=== PATIENT | male | born 1990 | race Two or more races ===

== ENCOUNTER 2018-01-11 05:59 | Emergency (ER) | payer OTHER ==
[2018-01-11] MEDS ORDERED: MORPHINE SULFATE 10 MG/ML INJ IM ONE (07:04)
[2018-01-11] MEDS ORDERED: LIDOCAINE 1% INJ-PF (10 MG/ML) 30 ML SDV INFIL ONE (07:04)
[2018-01-11] MEDS ORDERED: ONDANSETRON 4 MG TAB.RAPDIS PO ONE (07:04)
[2018-01-11] MEDS ORDERED: BUPIVACAINE HCL 0.5%-EPI 1:200000 INJ/PF 30 ML VIAL INJ ONE (07:05)
[2018-01-11] MEDS ORDERED: SULFAMETHOXAZOLE/TRIMETHOPRIM 800-160 MG TABLET PO ONE ×2 (07:06→09:11)
[2018-01-11] MEDS ORDERED: LIDOCAINE 4%/TETRACAINE 0.5%/EPI 0.18% 5 ML TOPICAL SOLN TOP ONE (08:02)
--- NOTE | 2018-01-11 09:18 | ER Document Report ---
ED General - General Chief Complaint: Abscess Stated Complaint: INNER THIGH PAIN Time Seen by Provider: 01/11/18 06:33 TRAVEL OUTSIDE OF THE [place] IN LAST 30 DAYS: No - HPI Patient complains to provider of: Right inner thigh abscess Notes: Patient coming in for right inner thigh abscess ongoing for the last 5 days now with drainage and erythema. Patient denies any fevers chills nausea vomiting diarrhea denies any history of MRSA or abscesses. Denies any history of trauma. States very painful - Related Data Allergies/Adverse Reactions: No Known Allergies Allergy (Verified 01/11/18 08:25) Past Medical History - Social History Smoking Status: Unknown if Ever Smoked Frequency of alcohol use: None Drug Abuse: None Family History: Reviewed & Not Pertinent Patient has suicidal ideation: No Patient has homicidal ideation: No Renal/ Medical History: Denies: Hx Peritoneal Dialysis Review of Systems - Review of Systems Constitutional: Other - Abscess with erythema EENT: No symptoms reported Cardiovascular: No symptoms reported Respiratory: No symptoms reported Gastrointestinal: No symptoms reported Genitourinary: No symptoms reported Male Genitourinary: No symptoms reported Musculoskeletal: No symptoms reported Skin: No symptoms reported Hematologic/Lymphatic: No symptoms reported Neurological/Psychological: No symptoms reported Physical Exam - Vital signs Vitals: Temp Pulse Resp BP Pulse Ox 98.4 F 98 18 167/101 H 96 01/11/18 06:16 01/11/18 06:16 01/11/18 06:16 01/11/18 06:16 01/11/18 06:16 Interpretation: Normal - General General appearance: Appears well, Alert - HEENT Head: Normocephalic, Atraumatic Eyes: Normal Pupils: PERRL - Respiratory Respiratory status: No respiratory distress Chest status: Nontender Breath sounds: Normal Chest palpation: Normal - Cardiovascular Rhythm: Regular Heart sounds: Normal auscultation Murmur: No - Abdominal Inspection: Normal Distension: No distension Bowel sounds: Normal Tenderness: Nontender Organomegaly: No organomegaly - Back Back: Normal, Nontender - Extremities General upper extremity: Normal inspection, Nontender, Normal color, Normal ROM , Normal temperature General lower extremity: Nontender, Normal color, Normal ROM, Normal temperature , Normal weight bearing. No: Normal inspection - Patient coming in with an abscess on the right leg patient has a 2 cm x 2 cm area of fluctuance followed by an area approximately 8 cm x 6 mm of the inner thigh there is no extension of erythema to the groin or perineal region. Patient also has a small bump on left levels bedside ultrasound no signs of fluid collection. Patient also does have a small amount of fluid collection and what looks to be a phlegmon within the abscess on the right., Susy's sign - Neurological Neuro grossly intact: Yes Cognition: Normal Orientation: AAOx4 Mercer Coma Scale Eye Opening: Spontaneous Mercer Coma Scale Verbal: Oriented Bharati Coma Scale Motor: Obeys Commands Bharati Coma Scale Total: 15 Speech: Normal Motor strength normal: LUE, RUE, LLE, RLE Sensory: Normal - Psychological Associated symptoms: Normal affect, Normal mood - Skin Skin Temperature: Warm Skin Moisture: Dry Skin Color: Normal Course - Re-evaluation Re-evalutation: 01/11/18 14:53 I&D performed. Patient tolerated procedure patient was started on Bactrim will be discharged home. - Vital Signs Vital signs: Temp Pulse Resp BP Pulse Ox 97.4 F 78 18 145/86 H 96 01/11/18 09:51 01/11/18 09:51 01/11/18 09:51 01/11/18 09:51 01/11/18 09:51 Procedures - Incision and Drainage Right Thigh Type: Simple Anesthetic type: 0.5% Bupivacaine mL's of anesthetic: 5 - Comminution lidocaine and Marcaine used Blade size: 11 I&D procedure: Betadine prep applied, Chlorprep applied Incision Method: Incision made by scalpel Amount/type of drainage: Mild amount of pus and blood. Discharge - Discharge Clinical Impression: Cellulitis and abscess of leg Condition: Good Disposition: HOME, SELF-CARE Instructions: Abscess ([facility]), Oral Narcotic Medication ([facility]), Post Incision and Drainage, Trimethoprim-Sulfa ([facility]) Additional Instructions: Please take Tylenol and Motrin for pain control he may also take the prescribed narcotic pain medication. Please change her dressing at least once a day. Continue to monitor the area redness if this spreads beyond all marking by about 1 inch I would recommend coming to the ER for further evaluation. Return to the ER to be if you develop a fever. Take antibiotics as prescribed. He may also place warm compresses on the area to help out with the pain. He can expect to have some slight drainage/blood when he changes them. Prescriptions: Sulfamethoxazole/Trimethoprim [Bactrim Ds Tablet] 2 each PO BID 10 Days #20 tablet Sulfamethoxazole/Trimethoprim [Bactrim Ds Tablet] 2 each PO BID 10 Days #40 tablet Tramadol HCl [Ultram 50 mg Tablet] 50 mg PO ASDIR PRN #30 tablet PRN Reason: Forms: Return to Work
[2018-01-11 10:25] VITALS: BP 145/86
== END 2018-01-11 10:18 | disposition home or self-care (01) ==
LOC: ER 05:59
PROC: 0H9HXZZ Drainage of Right Upper Leg Skin, External Approach (ICD-10-PCS; principal; 2018-01-11)
DX: L02.415 Cutaneous abscess of right lower limb (principal); L03.115 Cellulitis of right lower limb
CPT/HCPCS: 99283; 96372; 10060; S0119; J2270; J3490

== ENCOUNTER 2018-01-13 02:10 | Emergency (ER) | payer OTHER ==
--- NOTE | 2018-01-13 03:49 | ER Document Report ---
HPI - HPI Context: Patient is a 27 year old male who was seen here on 01/11/2018 for a right medial thigh abscess x5 days that was I&D and initiated on Bactrim and Tramadol. He was told to return to the ED if the erythema spread outside of the line marking the existing erythema on 01/11. He states this evening he went to the bathroom and had noticed the redness approximately 1.5 inches past the line. He states he has been taking his antibiotic as directed and has not missed any doses. Admits to drainage. He denies any fevers, chills, nausea, vomiting. Otherwise healthy male. Denies h/o DM, H/o HTN. Denies tobacco use. Past Medical History - Social History Smoking Status: Never Smoker Family History: Reviewed & Not Pertinent Renal/ Medical History: Denies: Hx Peritoneal Dialysis Vertical Provider Document - CONSTITUTIONAL Agree With Documented VS: Yes Notes: PHYSICAL EXAM GENERAL: Alert, interacts well. HEAD: Normocephalic, atraumatic. LUNGS: Clear to auscultation bilaterally, no wheezes, rales, or rhonchi. No respiratory distress. HEART: Regular rate and rhythm. No murmurs, gallops, or rubs. EXTREMITIES: Moves all 4 extremities spontaneously. No edema, radial and dorsalis pedis pulses 2/4 bilaterally. No cyanosis. NEUROLOGICAL: Alert and oriented x4. Normal speech. PSYCH: Normal affect, normal mood. SKIN: right medial thigh with evidence of erythema measuring 20cm in diameter with a central indurated area of 6-8cm with central incision. No active purulent drainage or bleeding. - INFECTION CONTROL TRAVEL OUTSIDE OF THE [place] IN LAST 30 DAYS: No Course - Re-evaluation Re-evalutation: 01/13/18 03:46 Patient is a 27-year-old male who is hemodynamically stable, no acute distress afebrile. Presentation is consistent with worsening cellulitis of the right medial thigh. Patient only on Bactrim without any coverage for strep. CBC stable without any evidence of leukocytosis or anemia. Wound culture sent and patient given dose of ceftriaxone. Will discharge home on p.o. Keflex with instructions to return to the ED with any spreading cellulitis outside of the new borders are replaced this evening. Patient agrees with plan and is stable for discharge home. Discharge - Discharge Clinical Impression: Cellulitis and abscess of leg Condition: Good Disposition: HOME, SELF-CARE Instructions: Abscess ([facility]), MRSA Cellulitis ([facility]), Post Incision and Drainage , Cephalexin ([facility]), Trimethoprim-Sulfa ([facility]) Additional Instructions: Please continue taking her Bactrim as directed. He has also been started on a new medication called Keflex which will cover for different bacteria. Please return to the emergency department if your redness continues to spread out of the new borders that were placed this evening/the larger [place]. Please also return to the emergency department with any fevers of 102 or higher, any difficulty tolerating oral fluids, any other additional symptoms worrisome to you. Prescriptions: Cephalexin Monohydrate [Keflex 500 mg Capsule] 500 mg PO Q6H 10 Days capsule Referrals: [facility] [Provider Group] - Follow up in 3-5 days
[2018-01-13] MEDS ORDERED: CEFAZOLIN 1 GM/D5W RTU 1 GM/50 ML RTUPB IV ONE (04:00)
[2018-01-13] MEDS ORDERED: TRAMADOL HCL 50 MG TABLET PO ONE (04:00)
[2018-01-13 04:50] LABS: ABSOLUTE BASOPHILS # (AUTO) 0.1 10^3/uL (0.0-0.2); ABSOLUTE EOSINOPHILS # (AUTO) 0.2 10^3/uL (0.0-0.6); ABSOLUTE LYMPHOCYTES (AUTO) 2.6 10^3/uL (0.5-4.7); ABSOLUTE NEUT (AUTO) 5.4 10^3/uL (1.7-8.2); BASOPHILS % (AUTO) 1.2 % (0-2); EOSINOPHILS % (AUTO) 2.4 % (0-6); HEMATOCRIT 44.6 % (37.9-51.0); HEMOGLOBIN 15.3 g/dL (13.5-17.0); LYMPHOCYTES % (AUTO) 27.7 % (13-45); MEAN CORPUSCULAR HEMOGLOBIN 30.2 pg (27.0-33.4); MEAN CORPUSCULAR HGB CONC 34.4 g/dL (32.0-36.0); MEAN CORPUSCULAR VOLUME 88 fl (80-97); MONOCYTES % (AUTO) 10.8 % (3-13); PLATELET COUNT 208 10^3/uL (150-450); RED BLOOD COUNT 5.09 10^6/uL (4.35-5.55); RED CELL DISTRIBUTION WIDTH 12.5 % (11.5-14.0); SEGMENTED NEUTROPHILS % (AUTO) 57.9 % (42-78); TOTAL CELLS COUNTED % (AUTO) 100 %; WHITE BLOOD COUNT 9.4 10^3/uL (4.0-10.5)
[2018-01-13 05:28] LABS: ANION GAP 10 (5-19); BLOOD UREA NITROGEN 16 mg/dL (7-20); CALCIUM 9.4 mg/dL (8.4-10.2); CARBON DIOXIDE 30 mmol/L (22-30); CHLORIDE 102 mmol/L (98-107); GLUCOSE 100 mg/dL (75-110); POTASSIUM 4.4 mmol/L (3.6-5.0); SODIUM 141.9 mmol/L (137-145)
== END 2018-01-13 04:14 | disposition home or self-care (01) ==
LOC: ER 02:10
DX: L02.415 Cutaneous abscess of right lower limb (principal)
CPT/HCPCS: 36415; 80048; 85025; 87040; 87070; 87075; 87077; 87186; 87205; 96374; 99283

== ENCOUNTER 2018-01-14 23:34 | Emergency (ER) | payer OTHER ==
[2018-01-15] MEDS ORDERED: CEFTRIAXONE INJ 1000 MG VIAL IM ONE (01:44)
[2018-01-15] MEDS ORDERED: LIDOCAINE 1% INJ-PF (10 MG/ML) 30 ML SDV INJ ONE (01:45)
[2018-01-15] MEDS ORDERED: LIDOCAINE 1% INJ (10 MG/ML) 10 ML MDV INJ ONE (01:45)
[2018-01-15] MEDS ORDERED: MORPHINE SULFATE 10 MG/ML INJ IM ONE (02:01)
[2018-01-15] MEDS ORDERED: ONDANSETRON 4 MG TAB.RAPDIS PO ONE (02:02)
[2018-01-15] MEDS ORDERED: LIDOCAINE 4%/TETRACAINE 0.5%/EPI 0.18% 5 ML TOPICAL SOLN TOP ONE (02:35)
--- NOTE | 2018-01-15 03:01 | ER Document Report ---
ED General - General Chief Complaint: Rash Stated Complaint: POSSIBLE LEG INFECTION Time Seen by Provider: 01/15/18 01:32 Mode of Arrival: Ambulatory Information source: Patient TRAVEL OUTSIDE OF THE [place] IN LAST 30 DAYS: No - HPI Notes: Patient is a 27-year-old male presents emergency department with report of a right lower extremity abscess/skin infection that started about 5 days ago. The patient was seen on 01/11/18 and had incision and drainage performed and was started on Bactrim. There was no packing placed in the wound however. The patient reports the induration has slightly improved but he reports a slightly expanding cellulitis distally down the leg. He was seen 2 days ago and started on Keflex but just is only had 2 tablets. The patient on his original evaluation had blood culture and blood work which showed no evidence for diabetes or significant elevation of the white blood cell count, and wound culture thus far is growing gram positive clusters of cocci, without further differentiation or sensitivity. Patient denies any fevers or chest pain or shortness of breath. He reports no numbness or paresthesia. There is no history of MRSA or other skin abscesses that he is aware of. - Related Data Allergies/Adverse Reactions: No Known Allergies Allergy (Verified 01/11/18 08:25) Past Medical History - General Information source: Patient - Social History Smoking Status: Never Smoker Chew tobacco use (# tins/day): No Frequency of alcohol use: Rare Drug Abuse: None Lives with: Family Family History: Reviewed & Not Pertinent Patient has suicidal ideation: No Patient has homicidal ideation: No Renal/ Medical History: Denies: Hx Peritoneal Dialysis Review of Systems - Review of Systems Notes: REVIEW OF SYSTEMS: CONSTITUTIONAL : Denies fever, chills, or sweats. EENT: Denies eye, ear, throat, or mouth pain or symptoms. CARDIOVASCULAR: Denies chest pain. Denies ankle edema. RESPIRATORY: Denies shortness of breath, difficulty breathing, or wheezing. GASTROINTESTINAL: Denies abdominal pain. Denies nausea, vomiting, or diarrhea. GENITOURINARY: Denies difficulty urinating MUSCULOSKELETAL: Denies back or neck pain or stiffness. Denies joint pain or swelling. SKIN: Abscess right thigh. HEMATOLOGIC : Denies easy bruising or bleeding. LYMPHATIC: Denies swollen, enlarged glands. NEUROLOGICAL: Denies weakness or paralysis or loss of use of either side. Denies sensory loss, numbness, or tingling. ALL OTHER SYSTEMS REVIEWED AND NEGATIVE. Dictation was performed using [employer] voice recognition software Physical Exam - Vital signs Vitals: Temp Pulse Resp BP Pulse Ox 98.3 F 77 16 151/88 H 97 01/14/18 23:34 01/14/18 23:34 01/14/18 23:34 01/14/18 23:34 01/14/18 23:34 - Notes Notes: HEENT atraumatic normocephalic. Conjunctiva clear. Abdomen soft nontender. Genitourinary exam circumcised. No testicular extension no significant inguinal adenopathy. No evidence for Dominga's. Left leg is clear. Right leg shows medial upper thigh induration 4 cm diameter with a proximal incision that measures 1 cm that appears to be partially closed. There is no packing in place. There is cellulitis that extends 2 cm above the area of induration but extends 8 cm below the area of induration. Distally, the patient is neurovascularly intact with good distal sensation and capillary refill. No distal edema. Good distal pulses. Course - Re-evaluation Re-evalutation: 01/15/18 03:05 Patient was given a shot of Rocephin shot of morphine and p.o. Zofran. Following discussion of risks, alternatives, and benefits, the patient agreed to incision and drainage of the wound with packing placement. A wound culture had already been obtained, so this was not repeated. The wound area was Betadine prepped, and the patient requested a topical anesthetic and LET was applied to the wound. Afterwards, the wound was locally infiltrated with lidocaine 1% 1.5 cc, then the wound was incised with a #11 scalpel and extended from 1 cm to 1.8 cm and then purulent material was obtained the wound was irrigated with saline, then the wound was, then gently explored, then the wound was loosely packed with quarter inch iodoform gauze. Patient tolerated the procedure with some degree of pain. Blood loss less than 10 cc. Patient was advised to day follow-up for packing removal and replacement and further evaluation. He will continue Bactrim and Keflex, and wound culture from 2 days ago is still pending for confirmation and sensitivity. 01/15/18 03:43 - Vital Signs Vital signs: Temp Pulse Resp BP Pulse Ox 98.3 F 77 16 151/88 H 97 01/14/18 23:34 01/14/18 23:34 01/14/18 23:34 01/14/18 23:34 01/14/18 23:34 Discharge - Discharge Clinical Impression: Abscess Cellulitis Qualifiers: Site of cellulitis: extremity Site of cellulitis of extremity: lower extremity Laterality: right Qualified Code(s): L03.115 - Cellulitis of right lower limb Condition: Stable Disposition: HOME, SELF-CARE Instructions: Abscess ([facility]), Oral Narcotic Medication ([facility]), Cephalexin ([facility]), Trimethoprim-Sulfa ([facility]) Additional Instructions: The wound packing needs to be removed in 2 days and then replaced. Return to the emergency department in case of fever or worsening redness. Continue Keflex and Bactrim antibiotic. You may take ibuprofen at the same time as Clymer and tramadol as needed for pain. Prescriptions: Hydrocodone/Acetaminophen [Clymer 5-325 mg Tablet] 1 tab PO Q4HP PRN #20 tablet PRN Reason:
[2018-01-15] MEDS ORDERED: HYDROCODONE/ACETAMINOPHEN 5-325 MG (6 TAB/ER DISP) PO PRN (03:20)
[2018-01-15 04:09] VITALS: BP 144/82
== END 2018-01-15 04:09 | disposition home or self-care (01) ==
LOC: ER 23:34
DX: L02.415 Cutaneous abscess of right lower limb (principal); L03.115 Cellulitis of right lower limb; Z98.890 Other specified postprocedural states
CPT/HCPCS: 99282; 96372; 10060; A6266; S0119; J3490 ×2; J2270; J0696

== ENCOUNTER 2018-10-15 01:47 | Emergency (ER) | payer OTHER ==
[2018-10-15 02:00] VITALS: BP 174/104
[2018-10-15] MEDS ORDERED: ACETAMINOPHEN 325 MG TABLET PO ONE (02:36)
[2018-10-15] MEDS ORDERED: MORPHINE SULFATE IR 15 MG TABLET PO ONE (02:36)
--- NOTE | 2018-10-15 02:45 | ER Document Report ---
ED General - General Chief Complaint: Back Pain Stated Complaint: CHEST AND SHOULDER PAIN Time Seen by Provider: 10/15/18 02:18 Notes: Patient is a 28-year-old male that comes to the emergency department for chief complaint of pain across his left chest, shoulder, and he is back along the scapula. Pain is with range of motion of the left shoulder and with deep breaths. He states he has had this pain since 2016, [facility] several weeks ago where his shoulder was evaluated. 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 He states he is on Robaxin, anti-inflammatories. He states that over the past several days that the pain has been more noticeable and he has become more uncomfortable therefore he came in for evaluation. He denies IV drug abuse, fever, reinjury. He denies any other medical history. TRAVEL OUTSIDE OF THE [place] IN LAST 30 DAYS: No - Related Data Allergies/Adverse Reactions: No Known Allergies Allergy (Verified 01/11/18 08:25) Past Medical History - General Information source: Patient - Social History Smoking Status: Never Smoker Frequency of alcohol use: Occasional Drug Abuse: None Lives with: Family Family History: Reviewed & Not Pertinent Patient has suicidal ideation: No Patient has homicidal ideation: No - Medical History Medical History: Negative Renal/ Medical History: Denies: Hx Peritoneal Dialysis Review of Systems - Review of Systems Constitutional: No symptoms reported EENT: No symptoms reported Cardiovascular: No symptoms reported Respiratory: No symptoms reported Gastrointestinal: No symptoms reported Genitourinary: No symptoms reported Male Genitourinary: No symptoms reported Musculoskeletal: See HPI Skin: No symptoms reported Hematologic/Lymphatic: No symptoms reported Neurological/Psychological: No symptoms reported Physical Exam - Vital signs Vitals: Temp Pulse Resp BP Pulse Ox 98.1 F 82 15 174/104 H 97 10/15/18 01:59 10/15/18 01:59 10/15/18 01:59 10/15/18 01:59 10/15/18 01:59 - Notes Notes: GENERAL: Alert, interacts well. No acute distress. HEAD: Normocephalic, atraumatic. EYES: Pupils equal, round, and reactive to light. Extraocular movements intact. ENT: Oral mucosa moist, tongue midline. Oropharynx unremarkable. Airway patent. Nares patent, no nasal septal hematoma, TM's intact. NECK: Full range of motion. Supple. Trachea midline. LUNGS: Clear to auscultation bilaterally, no wheezes, rales, or rhonchi. No respiratory distress. Mild tenderness over the left pectoralis muscle extending up to the left shoulder. HEART: Regular rate and rhythm. No murmur ABDOMEN: Soft, non-tender. Non-distended. Bowel sounds present in all 4 quadrants. GENITOURINARY: Deferred EXTREMITIES: Tender over the left upper pectoral muscles, muscles adjacent to the left scapula, and over the supraspinatus muscles as well. Pain with range of motion of the left shoulder although range of motion is intact. Areas over the same with much muscle fibers suggesting spasm. Normal distal neurovascular exam. Normal upper extremity exam is otherwise. BACK: no cervical, thoracic, lumbar midline tenderness. No saddle anesthesia, normal distal neurovascular exam. NEUROLOGICAL: Alert and oriented x3. Normal speech. [cranial nerves II through XII grossly intact]. PSYCH: Normal affect, normal mood. SKIN: Warm, dry, normal turgor. No rashes or lesions noted. Course - Re-evaluation Re-evalutation: EKG shows sinus rhythm with no T wave inversions or ST segment changes in consecutive leads. QTc unremarkable. Chest x-ray unremarkable. Patient with ongoing symptoms which are intermittently worse. He states over the past few days he has had a lot of trouble moving his arm. He does have a lot of tenderness with movement, tightness, and muscle spasms on exam. Vital signs are unremarkable except for hypertension, unfortunately this was not documented as rechecked, patient is to follow-up with primary care to have this rechecked. Patient already has good orthopedic follow-up. Requesting something for the next few days, is planning to get a shoulder injection on the left side to give him more time until possible surgery. I did provide him with diazepam as an improvement over his Robaxin for attempted additional help with his muscle spasms. I discussed return precautions in detail with patient, I discussed risks of diazepam with patient. Patient states gratefulness and understanding, states agreement with plan. - Vital Signs Vital signs: Temp Pulse Resp BP Pulse Ox 98.1 F 82 15 174/104 H 97 10/15/18 01:59 10/15/18 01:59 10/15/18 01:59 10/15/18 01:59 10/15/18 01:59 Discharge - Discharge Clinical Impression: Chest wall pain Left shoulder pain Qualifiers: Chronicity: acute Qualified Code(s): M25.512 - Pain in left shoulder Condition: Stable Disposition: HOME, SELF-CARE Additional Instructions: Your workup does not show any acute concerning findings. Follow-up with your orthopedic surgeon for additional management including possible injections, physical therapy, or surgery. Continue on anti-inflammatory such as ibuprofen, you have been provided with medication to use temporarily has muscle relaxer, apply heat to the area, perform gentle stretches, avoid lifting with the shoulder. Follow-up with primary care. Return for any concerning symptoms including swelling, numbness, fever, developing redness, or any other concerning symptoms. Prescriptions: Diazepam [Valium 5 mg Tablet] 1 - 2 tab PO TID PRN #12 tablet PRN Reason: [facility]errals[facility] [[facility] - Follow up as needed
--- NOTE | 2018-10-15 03:17 | RADIOLOGY REPORT (SQ) ---
EXAM DESCRIPTION: XR CHEST 2 VIEWS COMPLETED DATE/TME: 10/15/2018 02:36 CLINICAL HISTORY: 28 years Male, chest pain, pain with inspiration COMPARISON: None. NUMBER OF VIEWS/TECHNIQUE: 2, Frontal, Lateral FINDINGS: Adequate lung volume, clear parenchyma, normal cardiac silhouette, and intact bony thorax. IMPRESSION: No acute cardiopulmonary findings.
--- NOTE | 2018-10-15 14:22 | EKG REPORT ---
SEVERITY:- NORMAL ECG - SINUS RHYTHM : Confirmed by: Esther Vang MD 15-Oct-2018 14:21:15
== END 2018-10-15 03:37 | disposition home or self-care (01) ==
LOC: ER 01:47
DX: R07.89 Other chest pain (principal); M25.512 Pain in left shoulder; M62.838 Other muscle spasm; I10 Essential (primary) hypertension; Z79.899 Other long term (current) drug therapy
CPT/HCPCS: 71046; 93005; 93010; 99283

== ENCOUNTER 2019-04-27 23:40 | Emergency (ER) | payer OTHER ==
[2019-04-28 01:28] LABS: ABSOLUTE BASOPHILS # (AUTO) 0.1 10^3/uL (0.0-0.2); ABSOLUTE EOSINOPHILS # (AUTO) 0.3 10^3/uL (0.0-0.6); ABSOLUTE LYMPHOCYTES (AUTO) 2.3 10^3/uL (0.5-4.7); ABSOLUTE MONOCYTES (AUTO) 0.8 10^3/uL (0.1-1.4); ABSOLUTE NEUT (AUTO) 4.4 10^3/uL (1.7-8.2); BASOPHILS % (AUTO) 1.1 % (0-2); EOSINOPHILS % (AUTO) 3.7 % (0-6); HEMATOCRIT 41.1 % (37.9-51.0); HEMOGLOBIN 14.3 g/dL (13.5-17.0); LYMPHOCYTES % (AUTO) 29.5 % (13-45); MEAN CORPUSCULAR HEMOGLOBIN 30.2 pg (27.0-33.4); MEAN CORPUSCULAR HGB CONC 34.7 g/dL (32.0-36.0); MEAN CORPUSCULAR VOLUME 87 fl (80-97); MONOCYTES % (AUTO) 10.1 % (3-13); PLATELET COUNT 254 10^3/uL (150-450); RED BLOOD COUNT 4.72 10^6/uL (4.35-5.55); RED CELL DISTRIBUTION WIDTH 12.1 % (11.5-14.0); SEGMENTED NEUTROPHILS % (AUTO) 55.6 % (42-78); TOTAL CELLS COUNTED % (AUTO) 100 %; WHITE BLOOD COUNT 7.9 10^3/uL (4.0-10.5)
[2019-04-28 01:44] LABS: ALANINE AMINOTRANSFERASE 60 U/L (21-72); ALBUMIN 4.1 g/dL (3.5-5.0); ALKALINE PHOSPHATASE 102 U/L (38-126); ANION GAP 10 (5-19); ASPARTATE AMINO TRANSFERASE 55 U/L (17-59); BILIRUBIN,DIRECT 0.2 mg/dL (0.0-0.4); BILIRUBIN,TOTAL 0.2 mg/dL (0.2-1.3); BLOOD UREA NITROGEN 13 mg/dL (7-20); CARBON DIOXIDE 24 mmol/L (22-30); CHLORIDE 108 mmol/L (98-107); CREATINE KINASE 834 U/L (55-170); GLUCOSE 102 mg/dL (75-110); POTASSIUM 4.1 mmol/L (3.6-5.0); TOTAL PROTEIN 7.5 g/dL (6.3-8.2)
--- NOTE | 2019-04-28 01:52 | RADIOLOGY REPORT (SQ) ---
EXAM DESCRIPTION: XR CHEST 1 VIEW COMPLETED DATE/TME: 04/28/2019 01:13 CLINICAL HISTORY: 28 years Male sob COMPARISON: 10/23/2018. FINDINGS: Heart is within normal limits for AP technique. No central pontine vascular congestion or evidence of edema. No acute consolidation. No pleural fluid. IMPRESSION: No acute abnormality is identified.
[2019-04-28 01:58] LABS: CREATINE KINASE MB 0.44 ng/mL (<4.55)
[2019-04-28 01:59] LABS: TROPONIN I < 0.012 ng/mL
[2019-04-28] MEDS ORDERED: NORMAL SALINE 1000 ML 1,000 ML IV ONE ×2 (02:01→02:02)
[2019-04-28] MEDS ORDERED: KETOROLAC TROMETHAMINE INJ/PF 30 MG/1 ML SDV IV ONE (02:01)
--- NOTE | 2019-04-28 04:15 | ER Document Report ---
ED General - General Chief Complaint: Chest Pain Stated Complaint: BACK AND CHEST PAIN Time Seen by Provider: 04/28/19 01:13 Primary Care Provider: LITTLE,MONALISA [Primary Care Provider] - Follow up as needed Mode of Arrival: Ambulatory Information source: Patient Notes: Patient is a 28-year-old male who presents to the emergency department with chief complaint of chest pain and back pain. Patient reports chronic back pain that he is currently undergoing treatment by a chiropractor as well as pain management. He reports chest pain after doing a strenuous workout about 2 days ago. He reports the pain has been ongoing since then. He reports pain is worse with a deep breath. He denies any nausea, vomiting, diarrhea or fever. He denies any cardiac history. TRAVEL OUTSIDE OF THE [place] IN LAST 30 DAYS: No - Related Data Allergies/Adverse Reactions: No Known Allergies Allergy (Verified 01/11/18 08:25) Past Medical History - General Information source: Patient - Social History Smoking Status: Never Smoker Frequency of alcohol use: None Drug Abuse: None Family History: Reviewed & Not Pertinent Patient has suicidal ideation: No Patient has homicidal ideation: No - Past Medical History Cardiac Medical History: Reports: Hx Hypertension Renal/ Medical History: Denies: Hx Peritoneal Dialysis Review of Systems - Review of Systems Constitutional: No symptoms reported EENT: No symptoms reported Cardiovascular: See HPI Respiratory: See HPI Gastrointestinal: No symptoms reported Genitourinary: No symptoms reported Male Genitourinary: No symptoms reported Musculoskeletal: See HPI Skin: No symptoms reported Hematologic/Lymphatic: No symptoms reported Neurological/Psychological: No symptoms reported Physical Exam - Vital signs Vitals: Temp Pulse Resp BP Pulse Ox 98.1 F 85 22 H 180/104 H 97 04/28/19 00:19 04/28/19 00:19 04/28/19 00:19 04/28/19 00:04/28/19 00:19 - Notes Notes: PHYSICAL EXAMINATION: GENERAL: Well-appearing, well-nourished and in no acute distress. HEAD: Atraumatic, normocephalic. EYES: Pupils equal round and reactive to light, extraocular movements intact, sclera anicteric, conjunctiva are normal. ENT: Nares patent, oropharynx clear without exudates. Moist mucous membranes. NECK: Normal range of motion, supple without lymphadenopathy LUNGS: Breath sounds clear to auscultation bilaterally and equal. No wheezes rales or rhonchi. HEART: Regular rate and rhythm without murmurs ABDOMEN: Soft, nontender, nondistended abdomen. No guarding, no rebound. No masses appreciated. Musculoskeletal: Normal range of motion, no pitting or edema. No cyanosis. Reproducible chest pain with palpation to the left chest wall. Generalized back pain specifically to the right and left lumbar paraspinous areas, no vertebral tenderness, step-off or deformity. NEUROLOGICAL: Cranial nerves grossly intact. Normal speech, normal gait. Normal sensory, motor exams PSYCH: Normal mood, normal affect. SKIN: Warm, Dry, normal turgor, no rashes or lesions noted. Course - Re-evaluation Re-evalutation: Laboratory 04/28/19 04/28/19 04/28/19 00:39 00:39 00:39 WBC 7.9 RBC 4.72 Hgb 14.3 Hct 41.1 MCV 87 MCH 30.2 MCHC 34.7 RDW 12.1 Plt Count 254 Seg Neutrophils % 55.6 Lymphocytes % 29.5 Monocytes % 10.1 Eosinophils % 3.7 Basophils % 1.1 Absolute Neutrophils 4.4 Absolute Lymphocytes 2.3 Absolute Monocytes 0.8 Absolute Eosinophils 0.3 Absolute Basophils 0.1 Sodium 142.0 Potassium 4.1 Chloride 108 H Carbon Dioxide 24 Anion Gap 10 BUN 13 Creatinine 0.80 Est GFR ( Amer) > 60 Est GFR (Non-Af Amer) > 60 Glucose 102 Calcium 9.0 Total Bilirubin 0.2 Direct Bilirubin 0.2 Neonat Total Bilirubin Not Reportable Neonat Direct Bilirubin Not Reportable Neonat Indirect Bili Not Reportable AST 55 ALT 60 Alkaline Phosphatase 102 Creatine Kinase 834 H CK-MB (CK-2) 0.44 Troponin I < 0.012 Total Protein 7.5 Albumin 4.1 Chest X-Ray 04/28/19 01:13 IMPRESSION: No acute abnormality is identified. Labs as recorded, CK is elevated. Troponin was within normal limits. Patient was given 2 L of IV fluids here in the emergency department and he reports that he feels much better. Chest pain is reproducible on palpation. It is worsened with movement. Unlikely cardiac in nature. Patient's heart score is 1. Patient will be discharged home at this time with instructions to follow-up with primary care. ED return precautions were discussed and patient verbalized understanding and agreement with same. - Vital Signs Vital signs: Temp Pulse Resp BP Pulse Ox 98 F 68 12 158/96 H 98 04/28/19 04:50 04/28/19 00:28 04/28/19 04:03 04/28/19 04:49 04/28/19 04:03 - Laboratory Result Diagrams: 04/28/19 00:39 04/28/19 00:39 Laboratory results interpreted by me: 04/28/19 00:39 Chloride 108 H Creatine Kinase 834 H Discharge - Discharge Clinical Impression: Elevated CK Condition: Stable Disposition: HOME, SELF-CARE Additional Instructions: Was seen and evaluated in the emergency department today for back pain, chest pain or shortness of breath. Your work-up was negative other than elevated CK levels this is probably likely due to dehydration and the strenuous workout that you did. You were given IV fluids here in the emergency department. Please continue to drink plenty of fluids. [facility] all [facility] as well as your pain management. Return to the emergency department for any new or worsening symptoms. Referrals: [facility] [Primary [facility]] - Follow up as needed
[2019-04-28 04:50] VITALS: BP 158/96
== END 2019-04-28 04:50 | disposition home or self-care (01) ==
LOC: ER 23:40
DX: R74.8 Abnormal levels of other serum enzymes (principal); R07.9 Chest pain, unspecified; M54.9 Dorsalgia, unspecified; G89.29 Other chronic pain
CPT/HCPCS: 99283; 96361; 96374; 36415; 82553; 82550; 85025; 80053; 84484; 71045; J1885; J7030

== ENCOUNTER 2019-05-04 21:16 | Emergency (ER) | payer OTHER ==
[2019-05-04] MEDS ORDERED: DIAZEPAM 5 MG TABLET PO ONE (23:19)
[2019-05-04] MEDS ORDERED: KETOROLAC TROMETHAMINE INJ/PF 30 MG/1 ML SDV IM ONE (23:19)
--- NOTE | 2019-05-04 23:24 | ER Document Report ---
HPI - HPI Time Seen by Provider: 05/04/19 23:03 Pain Level: 5 Context: Patient is a 28-year-old male presents to the emergency department with a chief complaint of right shoulder pain. Patient states he does have a history of chronic right shoulder pain as well as left shoulder pain and chronic back pain. He states that he did not have any specific injury but that his body was worn out from the . Patient states that yesterday he noticed he started to develop right shoulder pain. Patient denies injury or fall. Patient states it feels very sore and tight. Patient states the pain is located primarily to the anterior aspect of the right shoulder. Patient states he had an MRI performed by orthopedics to the right shoulder few months ago which did not show any abnormality. Patient states he took 800 mg ibuprofen and Robaxin 4 hours ago which did not help with his pain. Patient denies numbness or tingling to the right upper extremity. Past Medical History - General Information source: Patient - Social History Smoking Status: Never Smoker Cigarette use (# per day): No Smoking Education Provided: Yes Frequency of alcohol use: None Drug Abuse: None Lives with: Family Family History: Reviewed & Not Pertinent - Past Medical History Cardiac Medical History: Reports: Hx Hypertension Pulmonary Medical History: Reports: None EENT Medical History: Reports: None Neurological Medical History: Reports: None Endocrine Medical History: Reports: None Renal/ Medical History: Reports: None. Denies: Hx Peritoneal Dialysis Malignancy Medical History: Reports None GI Medical History: Reports: None Musculoskeletal Medical History: Reports None Skin Medical History: Reports None Psychiatric Medical History: Reports: None Traumatic Medical History: Reports: None Infectious Medical History: Reports: None Surgical Hx: Negative Vertical Provider Document - CONSTITUTIONAL Agree With Documented VS: Yes Exam Limitations: No Limitations General Appearance: Mild Distress - INFECTION CONTROL TRAVEL OUTSIDE OF THE [place] IN LAST 30 DAYS: No - HEENT HEENT: Atraumatic, Normal ENT Exam, Normocephalic - NECK Neck: Normal Inspection - RESPIRATORY Respiratory: Breath Sounds Normal, No Respiratory Distress - CARDIOVASCULAR Cardiovascular: Regular Rate, Regular Rhythm - GI/ABDOMEN Gastrointestinal: Abdomen Soft, Abdomen Non-Tender - BACK Back: Normal Inspection - MUSCULOSKELETAL/EXTREMETIES Notes: Patient has tenderness to the anterior aspect of the right shoulder. There is no eccymosis, edema, or obvious deformity, patient has limited AROM, internal rotation and external rotation due to pain. + strong arm rest builder to right hand, + strong right radial and brachial pulse. - NEURO Level of Consciousness: Awake, Alert, Appropriate - DERM Integumentary: Warm, Dry, No Rash Course - Re-evaluation Re-evalutation: 05/04/19 23:26 Will obtain imaging of the right shoulder, although I do not suspect any bony abnormality. I will medicate the patient while in the emergency department and re-evaluate. Patient states he does have a ride home. Patient has close follow up with action therapy at [facility] already. 05/05/19 01:22 After receiving the Valium patient states that he feels a little bit better with his discomfort to the right shoulder. Patient still has limited range of motion at the shoulder joint but it has significantly improved. Patient did not want to perform active range of motion but I was able to perform passive range of motion with improvement with flexion, extension, internal rotation and external rotation. Patient still does not have full ROM. X-ray of the right shoulder showed Rotator cuff calcific tendinosis. Patient's symptoms are consistent with possible inflammation to the rotator cuff. We will treat the patient with oral steroids as a taper dosing. I did inform the patient that ultimately he does need to follow-up with his orthopedic as he may need a steroid injection and potentially surgery in the future. I did inform the patient to continue taking his ibuprofen and Robaxin at home. To use cool compresses to the site. Patient educated on strict return precautions. - Vital Signs Vital signs: Temp Pulse Resp BP Pulse Ox 98.7 F 104 H 16 169/110 H 96 05/04/19 21:29 05/04/19 21:29 05/04/19 21:29 05/04/19 21:29 05/04/19 21:29 - Diagnostic Test Radiology reviewed: Reports reviewed Radiology results interpreted by me: 05/05/19 01:23 Shoulder X-Ray 05/04/19 23:15 IMPRESSION: No acute fracture or malalignment. Rotator cuff calcific tendinosis. Discharge - Discharge Clinical Impression: Tendinopathy of rotator cuff Qualifiers: Laterality: right Qualified Code(s): M67.911 - Unspecified disorder of synovium and tendon, right shoulder Rotator cuff tendonitis Qualifiers: Laterality: right Qualified Code(s): M75.81 - Other shoulder lesions, right shoulder Condition: Stable Disposition: HOME, SELF-CARE Additional Instructions: Today you were seen in the emergency department for right shoulder pain. Your x-ray did show a right rotator cuff calcific tendinosis, this could potentially be inflamed which is causing your symptoms. I will place you on oral steroid called prednisone. This is a taper dosing and should be taken as directed. Please return to the emergency department if you have worsening symptoms, unable to move the right shoulder joint, fever, numbness or tingling to the lower extremity loss of function or any concerning signs or symptoms. Continue to take your Robaxin and ibuprofen. You may use cool compresses to the site. Please follow-up with orthopedics for the management of your continued pain. Shoulder Injury You have injured your shoulder. This usually results from stretching or tearing of the tendons during trauma. Time and protection are required in order to heal properly. Many injuries are quite disabling, and should be taken seriously. Initial treatment includes cold packs and a sling to rest the shoulder. The physician has assessed the seriousness of your injury, and has outlined a treatment plan. Understand that this treatment may change, depending on how you progress. If a re-examination was recommended, it is important that you follow up as instructed. Some shoulder injuries (such as partial tear of the rotator cuff) are only suspected after you've failed to improve. Call us if there's severe pain, numbness, or loss of function. Prescriptions: Prednisone [Deltasone 10 mg Tablet] 10 mg PO ASDIR PRN #21 tablet PRN Reason: [facility]errals: [facility] [[facility]] - Follow up as needed
--- NOTE | 2019-05-05 00:27 | RADIOLOGY REPORT (SQ) ---
3 VIEWS OF RIGHT SHOULDER EXAM DATE: 05/04/2019 11:15 PM CDT HISTORY: Shoulder pain. COMPARISON: None. FINDINGS: No acute fracture or dislocation is seen. The joint spaces are preserved. Calcific tendinosis of the rotator cuff. IMPRESSION: No acute fracture or malalignment. Rotator cuff calcific tendinosis.
[2019-05-05 01:28] VITALS: BP 145/101
== END 2019-05-05 01:38 | disposition home or self-care (01) ==
LOC: ER 21:16
DX: M67.911 Unspecified disorder of synovium and tendon, right shoulder (principal); M75.81 Other shoulder lesions, right shoulder; M25.511 Pain in right shoulder; M54.9 Dorsalgia, unspecified; G89.29 Other chronic pain; I10 Essential (primary) hypertension
CPT/HCPCS: 99283; 96374; 73030; J1885